=== PATIENT | male | born 1940 | race Caucasian/White ===

== ENCOUNTER 2021-05-20 17:43 | Emergency (ER) | payer MEDICARE, BC ==
[~2021-05-20] VITALS: Ht 167.6 cm; Wt 86.4 kg
[~2021-05-20 17:43] MED LIST: ASPI-1264 PO; MULT1TAB14 PO; RIVA1PAT TD
[2021-05-20 18:11] VITALS: BP 165/75
[2021-05-20] MEDS ORDERED: LORazepam 2 mg/ml vial IV ONE (19:45)
[2021-05-20] MEDS ORDERED: normal saline 1000ML IV soln IVB ONE (19:45)
[2021-05-20 20:10] LABS: BASOPHILS % (AUTO) 0.5 % (0-1); EOSINOPHILS # (AUTO) 0.1 X10'3 (0-0.9); EOSINOPHILS % (AUTO) 0.8 % (0-6); HEMATOCRIT 38.2 % (42.0-52.0); HEMOGLOBIN 13.3 g/dl (14.0-17.9); LYMPHOCYTES # (AUTO) 1.2 X10'3 (1.1-4.8); LYMPHOCYTES % (AUTO) 16.2 % (21-51); MEAN CORPUSCULAR VOLUME 94.4 FL (78-98); MEAN PLATELET VOLUME 8.1 FL (7.4-10.4); MONOCYTES # (AUTO) 0.5 X10'3 (0-0.9); NEUTROPHILS # (AUTO) 5.7 X10'3 (1.8-7.7); NEUTROPHILS % (AUTO) 76.5 % (42-75); PLATELET COUNT 177 X10'3 (140-440); RED BLOOD COUNT 4.04 X10'6 (4.70-6.10); RED CELL DISTRIBUTION WIDTH 13.2 % (11.5-14.5); WHITE BLOOD COUNT 7.5 X10'3 (4.5-11.0)
[2021-05-20 20:23] LABS: APTT 24 SECONDS (22-32)
[2021-05-20 20:25] LABS: ALANINE AMINOTRANSFERASE 18 U/L (12-78); ALBUMIN 3.2 G/DL (3.4-5.0); ALBUMIN/GLOBULIN RATIO 0.9 (1.1-1.5); ALKALINE PHOSPHATASE 68 IU/L (46-116); ANION GAP 7 (8-16); ASPARTATE AMINO TRANSFERASE 15 U/L (10-37); BILIRUBIN,TOTAL 0.8 MG/DL (0.1-1.0); BLOOD UREA NITROGEN 18 MG/DL (7-18); BUN/CREATININE RATIO 16.4 (5.4-32.0); CALCIUM 8.3 MG/DL (8.5-10.1); CHLORIDE 106 MMOL/L (99-107); GLUCOSE 125 MG/DL (70-104); POTASSIUM 3.4 MMOL/L (3.5-5.1); SODIUM 142 MMOL/L (135-145); TOTAL CARBON DIOXIDE 28.9 MMOL/L (24-32); TOTAL PROTEIN 6.7 G/DL (6.4-8.2); eGFR 64 ML/MIN
[2021-05-20 20:28] LABS: LIPASE 119 U/L (73-393); MAGNESIUM 2.3 MG/DL (1.5-2.4)
[2021-05-20] MEDS ORDERED: LIDOcaine 1% W/epiNEPHrine 1:200,000 10ml vial IJ ONE (20:45)
[2021-05-20] MEDS ORDERED: TETanus/Pertussis (Acell)/Diphther VAC/PF (Tdap-Adult) 0.5ml syringe IMVAC ONE (20:45)
[2021-05-20] MEDS ORDERED: LIDOcaine 1% W/epiNEPHrine 1:100,000 20ml vial IJ ONE (20:50)
[2021-05-20] MEDS ORDERED: CEPH-585 PO (21:34)
--- NOTE | 2021-05-20 22:15 | NUR ---
ATTEMPTED TO CATH PT WITH PA AND WAS UNSUCCESSFUL PT IS INCONTINENT. WANTED US TO FIND A REASON FOR PT TO STAY SO SHE COULD GET HELP AT HOME. PA EXPLAINED TO THAT SHE WOULD HAVE TO GET A REFERRAL THROUGH THEIR PCP WE DID A FULL WORKUP AND COULD FIND NO REASON TO KEEP PT. VERY UNPLEASED.
== END 2021-05-20 22:38 | disposition home or self-care (01) ==
LOC: ER 17:44
DX: S01.111A Laceration without foreign body of right eyelid and periocular area, initial encounter (principal); S09.90XA Unspecified injury of head, initial encounter; S06.0X0A Concussion without loss of consciousness, initial encounter; M79.605 Pain in left leg; M25.552 Pain in left hip; Z79.82 Long term (current) use of aspirin; Z79.2 Long term (current) use of antibiotics; Z79.899 Other long term (current) drug therapy; Z20.3 Contact with and (suspected) exposure to rabies; W01.0XXA Fall on same level from slipping, tripping and stumbling without subsequent striking against object, initial encounter; Y93.89 Activity, other specified; Y92.89 Other specified places as the place of occurrence of the external cause; Y99.8 Other external cause status
CPT/HCPCS: 12013; 36415; 70450; 71045; 72125; 80053; 83690; 83735; 84484; 85025; 85610; 85730; 90471; 90715; 93005; 96361; 96374; 99285; J2060; J3490; J7030